=== PATIENT | female | born 1990 | race Caucasian/White ===

== ENCOUNTER 2018-05-29 12:15 | Inpatient (IN) | payer BC ==
[2018-05-29] MEDS: Lactated Ringers 1,000 ML ONE (12:50)
[2018-05-29] MEDS: Lactated Ringers 1,000 ML IV SCH ×2 (12:50→13:34)
[2018-05-29] MEDS ORDERED: Sodium Chloride 0.9% 10 ML Syringe FLUSH PRN (13:12)
[2018-05-29] MEDS ORDERED: Nalbuphine 20 MG/ML 1 ML Syringe IVPUSH PRN ×2 (13:12→15:48)
[2018-05-29] MEDS ORDERED: Oxytocin/Lactated Ringers 10 UNIT/1,000 ML BAG IV SCH (13:15)
--- NOTE | 2018-05-29 13:48 | PCM.PREANE ---
Preanesthetic Assessment - Anesthesia/Transfusion/Family Hx Anesthesia History: Prior Anesthesia Without Reaction Transfusion History: No Prior Transfusion(s) - Review of Systems General: No Symptoms Pulmonary: No Symptoms Cardiovascular: No Symptoms Gastrointestinal: No Symptoms Neurological: No Symptoms Other: Reports: None - Physical Assessment NPO Status Date: 05/29/18 NPO Status Time: 12:00 Pulse: 80 O2 Sat by Pulse Oximetry: 100 Respiratory Rate: 20 Blood Pressure: 119/81 Temperature: 96.9 F Height: 1.55 m Weight: 104.644 kg ASA Class: 2 Mental Status: Alert & Oriented x3 Airway Class: Mallampati = 3 Thyro-Mental Finger Breadths: 3 Mouth Opening Finger Breadths: 3 ROM/Head Extension: Full Lungs: Clear to Auscultation Cardiovascular: Regular Rate - Lab Values: Laboratory Last Values WBC 13.18 K/mm3 (3.98-10.04) H 05/29/18 12:50 RBC 4.32 M/mm3 (3.98-5.22) 05/29/18 12:50 Hgb 13.7 gm/L (11.2-15.7) 05/29/18 12:50 Hct 40.3 % (34.1-44.9) 05/29/18 12:50 MCV 93.3 fl (79.4-94.8) 05/29/18 12:50 MCH 31.7 pg (25.6-32.2) 05/29/18 12:50 MCHC 34.0 g/dl (32.2-35.5) 05/29/18 12:50 RDW Std Deviation 43.0 fL (36.4-46.3) 05/29/18 12:50 Plt Count 206 K/mm3 (182-369) 05/29/18 12:50 MPV 9.1 fl (9.4-12.3) L 05/29/18 12:50 - Allergies Allergies/Adverse Reactions: Allergies Allergy/AdvReac Type Severity Reaction Status Date / Time codeine Allergy Nausea Verified 05/29/18 13:10 - Acknowledgements Anesthesia Type Planned: Epidural Pt an Appropriate Candidate for the Planned Anesthesia: Yes Alternatives and Risks of Anesthesia Discussed w Pt/Guardian: Yes Pt/Guardian Understands and Agrees with Anesthesia Plan: Yes PreAnesthesia Questionnaire Psychiatric History: Reports: Anxiety - Past Surgical History HEENT Surgical History: Reports: Adenoidectomy, Tonsillectomy - CURRENT (IN HOUSE) MEDS Current Meds: Current Medications Lactated Ringer's (Ringers, Lactated) 1,000 mls @ 100 mls/hr IV ASDIRECTED MOISE Last Admin: 05/29/18 13:34 Dose: 999 mls/hr Oxytocin/Lactated Ringer's (Pitocin In Lr 10 Units/1,000 Ml) 10 unit in 1,000 mls @ 500 mls/hr IV .CONTINUOUS MOISE Nalbuphine HCl (Nubain) 10 mg IVPUSH Q2H PRN PRN Reason: pain Sodium Chloride (Saline Flush) 10 ml FLUSH ASDIRECTED PRN PRN Reason: Keep Vein Open Discontinued Medications Lactated Ringer's (Ringers, Lactated) Confirm Administered Dose 1,000 mls @ as directed .ROUTE .STK-MED ONE Stop: 05/29/18 13:21
[2018-05-29] MEDS ORDERED: fentaNYL 100 MCG/2 ML SDV EPIDUR PRN (13:53)
[2018-05-29] MEDS ORDERED: fentaNYL 100 MCG/2 ML SDV ONE (13:55)
[2018-05-29] MEDS ORDERED: Bupivacaine/fentaNYL/NS 100 ML Bag EPIDUR SCH (14:00)
--- NOTE | 2018-05-29 15:21 | PCM.LDHP ---
L&D History of Present Illness - General Date of Service: 05/29/18 Admit Problem/Dx: Patient Status Order with Admit Dx/Problem 05/29/18 12:27 Patient Status [ADT] Routine 05/29/18 13:10 Patient Status [ADT] Routine Admission Diagnosis/Problem Admission Diagnosis/Problem 05/29/18 15:15 27 yo at 39 weeks 4 days gestation presents to Labor and delivery with SROM at 1100 at home and pelvic/back pressure. Examined by nurse at admission adn found to be 3-4 cm dilated, 100%effaced. Admitted for labor. epidural placed. Pt states clear fluid at home. routine care ultrasound with dilated renal pelvis. GBS negative O positive STD negative. Source of Information: Patient History Limitations: Reports: No Limitations - History of Present Illness Location, : Reports: Abdomen, Lower back Quality: Reports: Ache, Pressure Severity: Moderate Pain Score: 9 Improves with: Reports: None Worsens with: Reports: None Associated Symptoms: Reports: vaginal fluid - Related Data Allergies/Adverse Reactions: Allergies Allergy/AdvReac Type Severity Reaction Status Date / Time codeine Allergy Nausea Verified 05/29/18 13:10 Past Medical History HEENT History: Reports: None Psychiatric History: Reports: Anxiety - Past Surgical History HEENT Surgical History: Reports: Adenoidectomy, Tonsillectomy Social & Family History - Family History Family Medical History: Noncontributory - Tobacco Use Smoking Status *Q: Never Smoker - Caffeine Use Caffeine Use: Reports: None - Recreational Drug Use Recreational Drug Use: No - Living Situation & Occupation Living situation: Reports: H&P Review of Systems - Review of Systems: Review Of Systems: See Below General: Reports: No Symptoms HEENT: Reports: No Symptoms Pulmonary: Reports: No Symptoms Cardiovascular: Reports: No Symptoms Gastrointestinal: Reports: No Symptoms Genitourinary: Reports: No Symptoms Musculoskeletal: Reports: No Symptoms Skin: Reports: No Symptoms Psychiatric: Reports: No Symptoms Neurological: Reports: No Symptoms Hematologic/Lymphatic: Reports: No Symptoms Immunologic: Reports: No Symptoms L&D Exam - Exam Exam: See Below - Vital Signs Vital Signs: Last Vital Signs Temp 36.1 C 05/29/18 13:47 Pulse 80 05/29/18 13:47 Resp 20 05/29/18 13:47 BP 119/81 05/29/18 13:47 Pulse Ox 100 05/29/18 13:47 Weight: 104.644 kg - OB Specific Contraction Intensity: Moderate Movement: Active Heart Tones: Present Heart Tones per Min: 115 Heart Rate (FHR) Variability: Moderate (6-25 bmp) Presentation: Vertex Estimated Weight: 3500 - Mosher Score Mosher Score Cervix Position: Anterior Mosher Score Consistency: Soft Mosher Score Effacement: >80% Mosher Score Dilation: > 5 cm Mosher Score Infant's Station: -2 Mosher Score Total: 11 - Exam General: Alert, Severe Distress HEENT: Conjunctiva Clear Neck: Supple Genitourinary: Normal external exam Extremities: No Pedal Edema Skin: Warm, Dry, Intact Psychiatric: Alert, Normal Affect, Normal Mood - Patient Data Lab Results Last 24 hrs: Laboratory Results - last 24 hr 05/29/18 Range/Units 12:50 WBC 13.18 H (3.98-10.04) K/mm3 RBC 4.32 (3.98-5.22) M/mm3 Hgb 13.7 (11.2-15.7) gm/L Hct 40.3 (34.1-44.9) % MCV 93.3 (79.4-94.8) fl MCH 31.7 (25.6-32.2) pg MCHC 34.0 (32.2-35.5) g/dl RDW Std Deviation 43.0 (36.4-46.3) fL Plt Count 206 (182-369) K/mm3 MPV 9.1 L (9.4-12.3) fl Result Diagrams: 05/29/18 12:50 - Problem List (1) Normal labor SNOMED Code(s): 40050945 ICD Code: O80 - ENCOUNTER FOR FULL-TERM UNCOMPLICATED DELIVERY; Z37.9 - OUTCOME OF DELIVERY, UNSPECIFIED Status: Acute Current Visit: Yes Problem List Initiated/Reviewed/Updated: Yes Orders Last 24hrs: Active Orders 24 hr Category Date Time Status Patient Status [ADT] Routine ADT 05/29/18 12:27 Active Patient Status [ADT] Routine ADT 05/29/18 13:10 Active Activity as Tolerated [RC] PFP Care 05/29/18 13:13 Active Communication Order [RC] ASDIRECTED Care 05/29/18 13:13 Active Heart Tones [RC] ASDIRECTED Care 05/29/18 13:13 Active Non Stress Test [RC] PER UNIT ROUTINE Care 05/29/18 12:27 Active Non Stress Test [RC] PER UNIT ROUTINE Care 05/29/18 13:13 Active Notify Provider [RC] PFP Care 05/29/18 13:13 Active Notify Provider [RC] PRN Care 05/29/18 13:13 Active Peripheral IV Care [RC] . DIRECTED Care 05/29/18 13:13 Active Vital Signs [RC] PER UNIT ROUTINE Care 05/29/18 12:27 Active Vital Signs [RC] PER UNIT ROUTINE Care 05/29/18 13:13 Active Regular Diet [DIET] Diet 05/29/18 Lunch Active AMNISURE RUPTURE MEMBRAN [BF] Stat Lab 05/29/18 12:27 Ordered CBC W/O DIFF,HEMOGRAM [HEME] Routine Lab 05/29/18 12:50 Ordered RAPID PLASMA REAGIN,RPR [CHEM] Routine Lab 05/29/18 13:13 Ordered UA W/MICROSCOPIC [URIN] Stat Lab 05/29/18 12:27 Ordered Bupivacaine/fentaNYL/NS [fentaNYL/Bupivacaine/NS 2 MCG- Med 05/29/18 14:00 Active 0.125% 100 ML] 100 ml EPIDUR ASDIRECTED Lactated Ringers [Ringers, Lactated] 1,000 ml Med 05/29/18 13:15 Active IV ASDIRECTED Nalbuphine [Nubain] Med 05/29/18 13:12 Active 10 mg IVPUSH Q2H PRN Oxytocin/Lactated Ringers [Pitocin in LR 10 Units/1,000 Med 05/29/18 13:15 Active ML] 10 unit in 1,000 ml IV .CONTINUOUS Sodium Chloride 0.9% [Saline Flush] Med 05/29/18 13:12 Active 10 ml FLUSH ASDIRECTED PRN fentaNYL [Sublimaze] Med 05/29/18 13:53 Active 100 mcg EPIDUR Q3H PRN Electronic Heart Tones Ext w TOCO [WOMSER] Oth 05/29/18 13:13 Ordered Routine Electronic Heart Tones Internal [WOMSER] Per Unit Oth 05/29/18 13:13 Ordered Routine Peripheral IV Insertion Adult [OM.PC] Routine Oth 05/29/18 13:13 Ordered Resuscitation Status Routine Resus Stat 05/29/18 12:27 Ordered Medication Orders Fentanyl (Sublimaze) 100 mcg EPIDUR Q3H PRN PRN Reason: Pain Last Admin: 05/29/18 14:40 Dose: 100 mcg Fentanyl/Bupivacaine HCl (Fentanyl/Bupivacaine/Ns 2 Mcg-0.125% 100 Ml) 100 ml EPIDUR ASDIRECTED [facility] Last Admin: 05/29/18 14:40 Dose: 100 ml Lactated Ringer's (Ringers, Lactated) 1,000 mls @ 100 mls/hr IV ASDIRECTED [facility] Last Admin: 05/29/18 13:34 Dose: 999 mls/hr Infusion: 05/29/18 13:34 Dose: 999 mls/hr Admin: 05/29/18 12:50 Dose: 999 mls/hr Oxytocin/Lactated Ringer's (Pitocin In Lr 10 Units/1,000 Ml) 10 unit in 1,000 mls @ 500 mls/hr IV .CONTINUOUS [facility] Nalbuphine HCl (Nubain) 10 mg IVPUSH Q2H PRN PRN Reason: pain Sodium Chloride (Saline Flush) 10 ml FLUSH ASDIRECTED PRN PRN Reason: Keep Vein Open Assessment/Plan Comment:: 27 yo G1 at 37 weeks 4 days gestation in active labor. She is GBS negative. Pt did have low heart tones and decelerations after epidural was placed. Pt was rolled to her left and then right side and scalp electrode was placed. heart tones improved to 115 with accelerations.
[2018-05-29] MEDS ORDERED: Sodium Chloride 0.9% 1,000 ML ONE (15:38)
[2018-05-29] MEDS ORDERED: Metoclopramide 10 MG/2 ML SDV IVPUSH ONE (15:48)
[2018-05-29] MEDS ORDERED: ceFAZolin 2 GM in Premix Bag 1 BAG IV ONE (15:48)
[2018-05-29] MEDS ORDERED: Citric Acid/Sodium Citrate Solution 30 ML Cup PO ONE (15:48)
[2018-05-29] MEDS ORDERED: Metoclopramide 10 MG/2 ML SDV ONE (15:49)
[2018-05-29] MEDS ORDERED: Citric Acid/Sodium Citrate Solution 30 ML Cup ONE (15:49)
[2018-05-29] MEDS ORDERED: Propofol 200 MG/20 ML SDV ONE (16:00)
[2018-05-29] MEDS ORDERED: fentaNYL 250 MCG/5 ML SDV ONE (16:01)
[2018-05-29] MEDS ORDERED: Midazolam 1 MG/ML 2 ML SDV ONE ×2 (16:01→16:23)
[2018-05-29] MEDS ORDERED: ceFAZolin 1 GM Vial ONE (16:18)
[2018-05-29] MEDS ORDERED: Oxytocin 10 Units/1 ML SDV ONE ×2 (16:18→16:28)
[2018-05-29] MEDS ORDERED: Lidocaine 1% 2 ML ONE (16:18)
[2018-05-29] MEDS ORDERED: Succinylcholine/Normal Saline 100 MG/5 ML Syringe ONE (16:18)
[2018-05-29] MEDS ORDERED: Ondansetron 4 MG/2 ML SDV ONE (16:27)
[2018-05-29] MEDS ORDERED: Lactated Ringers 1,000 ML ONE ×2 (16:32)
[2018-05-29] MEDS ORDERED: HYDROmorphone 0.5 MG/0.5 ML Syringe ONE (16:37)
[2018-05-29] MEDS ORDERED: Ketorolac 30 MG/ML SDV ONE (16:50)
[2018-05-29] MEDS ORDERED: Meperidine PF 50 MG/ML Syringe ONE (17:02)
--- NOTE | 2018-05-29 17:32 | PCM.OPNOTE ---
- General Post-Op/Procedure Note Date of Surgery/Procedure: 05/29/18 Operative Procedure(s): Primary low transverse Findings: Baby boy in a vertex presentation. APGARS of 8 & 9. Cord gas 7.27. Weight per pediatric team. Normal appearance of the uterus, fallopian tubes, and ovaries. Pre Op Diagnosis: 39 weeks gestation. Terminal bradycardia Post-Op Diagnosis: Same Anesthesia Technique: General ET Tube Primary Surgeon: Page Meyer Secondary Surgeon: Lucrecia Morrell Anesthesia Provider: Richar Weeks Reason [employer] Was Necessary: Emergent nature of case, BMI of 43 Pathology: Cord gas segment collected. Placenta discarded. Fluid Replacement, Intraop: 2,500 Output, Urine Amount: 150 EBL in mLs: 1,000 Complications: None Condition: Good Free Text/Narrative:: The risks, benefits, indications, potential complications, and alternatives were explained to the patient and informed consent obtained. After induction of anesthesia, the patient was placed in a supine position and then draped and prepped in the usual sterile manner. A Pfannenstiel incision was made and carried down through the subcutaneous tissue to the fascia. Fascial incision was made and extended transversely. The fascia was from the underlying rectus tissue superiorly and inferiorly. The peritoneum was identified and entered. Peritoneal incision was extended longitudinally. The utero-vesical peritoneal reflection was incised transversely and the bladder flap was bluntly freed from the lower uterine segment. A low transverse uterine incision was made sharply with a scalpel and extended bluntly in a cephalocaudad direction. A baby boy was delivered from a vertex presentation with APGARS as above. After the umbilical cord was clamped and cut a cord segment was obtained for cord gases. The placenta was removed intact and appeared normal. The uterus was exteriorized and cleared of clots. The uterine outline, tubes and ovaries appeared normal. The uterine incision was closed with running locked sutures of 0 Vicryl. Hemostasis was obtained with a second imbricating layer of 0 vicryl. The uterus was then placed back into the abdomen. The infracolic gutters were cleared of blood clots. The fascia was then reapproximated with running sutures of 0 Vicryl. The sucutaneous tissue was irrigated with sterile warm normal saline, hemostasis obtained with cautery. This layer was closed with two layers of running 0 vicryl suture. The skin was reapproximated with running Subcuticular 4-0 monocryl sutures. Instrument, sponge, and needle counts were correct prior the abdominal closure and at the conclusion of the case.
--- NOTE | 2018-05-29 17:32 | PCM.SN ---
- Free Text/Narrative Note: Called for Stat section due to distress. Patient brought to OR 1. Quick explanations about the necessity of General Anesthesia have been given. Patient verbalized understanding and has given her verbal consent witnessed by Kendell Aparicio Rn and Vee Anne RN.
--- NOTE | 2018-05-29 17:33 | PCM.POSTAN ---
POST ANESTHESIA ASSESSMENT - MENTAL STATUS Mental Status: Alert, Oriented - VITAL SIGNS Pulse Rate: 106 SaO2: 98 Resp Rate: 22 Blood Pressure: 121/64 Temperature: 97.5 F - RESPIRATORY Respiratory Status: Respiratory Rate WNL, Airway Patent, O2 Saturation Stable - CARDIOVASCULAR CV Status: Blood Pressure Stable, Elevated Pulse Rate - GASTROINTESTINAL GI Status: No Symptoms - PAIN Pain Score: 2 - POST OP HYDRATION Hydration Status: Adequate & Stable
[2018-05-29] MEDS ORDERED: ePHEDrine 50 MG/ML SDV IVPUSH PRN (17:39)
[2018-05-29] MEDS ORDERED: Docusate Sodium 100 MG Cap PO PRN (17:39)
[2018-05-29] MEDS ORDERED: Dextrose 5%-Lactated Ringers 1,000 ML IV SCH (17:39)
[2018-05-29] MEDS ORDERED: Naloxone 0.4 MG/ML SDV IVPUSH PRN (17:39)
[2018-05-29] MEDS ORDERED: Ondansetron 4 MG/2 ML SDV IV PRN (17:39)
[2018-05-29] MEDS ORDERED: Lanolin 100% Cream 7 GM Tube TOP PRN (17:39)
--- NOTE | 2018-05-29 18:48 | CR ---
Abdomen: Supine view of the abdomen was obtained. Comparison: No prior study. Linear radiopacity is seen within the abdomen starting off the superior edge of the film and extending into the upper abdomen. Please correlate as to etiology. No other foreign body is seen. Bowel gas pattern is normal. Bony structures are unremarkable. Impression: 1. Linear radiopacity as noted above. Please correlate as to etiology. Diagnostic code #3
[2018-05-29] MEDS ORDERED: Bupivacaine 0.25% 10 ML SDV ONE (22:00)
[2018-05-29] MEDS: Ketorolac 30 MG/ML SDV IVPUSH SCH (23:18)
[2018-05-30] MEDS: ceFAZolin 2 GM in Premix Bag 1 BAG IV SCH ×3 (00:17→16:02)
--- NOTE | 2018-05-30 05:03 | PCM.PNPP ---
- General Info Date of Service: 05/30/18 Functional Status: Reports: Pain Controlled, Tolerating Diet, Ambulating - Review of Systems General: Reports: No Symptoms HEENT: Reports: Sore Throat Pulmonary: Reports: No Symptoms Cardiovascular: Reports: No Symptoms Gastrointestinal: Reports: Abdominal Pain (managed with medications) Genitourinary: Reports: No Symptoms Musculoskeletal: Reports: No Symptoms Neurological: Reports: No Symptoms - Patient Data Vital Signs - Most Recent: Last Vital Signs Temp 36.6 C 05/30/18 04:20 Pulse 105 H 05/30/18 04:20 Resp 16 05/30/18 04:20 BP 96/45 L 05/30/18 04:20 Pulse Ox 97 05/30/18 04:20 Weight - Most Recent: 104.644 kg I&O - Last 24 Hours: Intake & Output 05/29/18 05/29/18 05/30/18 14:59 22:59 06:59 Intake Total 2750 Output Total 330 1600 Balance 2420 -1600 Lab Results - Last 24 Hours: Laboratory Results - last 24 hr 05/29/18 05/29/18 05/29/18 Range/Units 12:50 16:55 16:56 WBC 13.18 H (3.98-10.04) K/mm3 RBC 4.32 (3.98-5.22) M/mm3 Hgb 13.7 (11.2-15.7) gm/L Hct 40.3 (34.1-44.9) % MCV 93.3 (79.4-94.8) fl MCH 31.7 (25.6-32.2) pg MCHC 34.0 (32.2-35.5) g/dl RDW Std Deviation 43.0 (36.4-46.3) fL Plt Count 206 (182-369) K/mm3 MPV 9.1 L (9.4-12.3) fl Cord ABG pH 7.26 (7.22-7.32) Cord ABG pCO2 53.2 (42-58) Cord ABG pO2 24 (12-24) Cord ABG HCO3 23.1 L (24-26) Cord ABG Base Excess -4.5 (-5.5-0.1) Cord VBG pH 7.32 (7.28-7.40) Cord VBG pCO2 45.7 H (32.8-38.6) Cord VBG pO2 33 H (28-32) Cord VBG HCO3 22.7 (19-24) Cord VBG Base Excess -3.1 (-4.4-0.4) Med Orders - Current: Current Medications Docusate Sodium (Colace) 100 mg PO Q12H PRN PRN Reason: Constipation Emollient Ointment (Lansinoh Hpa) 0 gm TOP ASDIRECTED PRN PRN Reason: Sore Nipples Ephedrine Sulfate (Ephedrine Sulfate) 5 mg IVPUSH SEECOMMENT PRN PRN Reason: Other Cefazolin Sodium/Dextrose 2 gm (/ Premix) 50 mls @ 100 mls/hr IV Q8H MOISE Stop: 05/30/18 16:29 Last Admin: 05/30/18 00:17 Dose: 100 mls/hr Ibuprofen (Motrin) 600 mg PO Q6H PRN PRN Reason: mild pain or fever Ketorolac Tromethamine (Toradol) 30 mg IVPUSH Q6H MOISE Stop: 05/30/18 11:31 Last Admin: 05/29/18 23:18 Dose: 30 mg Naloxone HCl (Narcan) 0.1 mg IVPUSH SEECOMMENT PRN PRN Reason: Respiratory Depression Ondansetron HCl (Zofran) 4 mg IV Q8H PRN PRN Reason: Nausea/Vomiting Oxycodone/Acetaminophen (Percocet 325-5 Mg) 2 tab PO Q4H PRN PRN Reason: Pain (moderate 4-6) Discontinued Medications Cefazolin Sodium (Ancef) Confirm Administered Dose 2 gm .ROUTE .STK-MED ONE Stop: 05/29/18 16:19 Citric Acid/Sodium Citrate (Bicitra Solution) 30 ml PO ONETIME ONE Stop: 05/29/18 15:49 Last Admin: 05/29/18 15:48 Dose: 30 ml Citric Acid/Sodium Citrate (Bicitra Solution) Confirm Administered Dose 30 ml .ROUTE .STK-MED ONE Stop: 05/29/18 15:50 Fentanyl (Sublimaze) 100 mcg EPIDUR Q3H PRN PRN Reason: Pain Last Admin: 05/29/18 14:40 Dose: 100 mcg Fentanyl (Sublimaze) Confirm Administered Dose 100 mcg .ROUTE .STK-MED ONE Stop: 05/29/18 13:56 Fentanyl (Sublimaze) Confirm Administered Dose 250 mcg .ROUTE .STK-MED ONE Stop: 05/29/18 16:02 Fentanyl/Bupivacaine HCl (Fentanyl/Bupivacaine/Ns 2 Mcg-0.125% 100 Ml) 100 ml EPIDUR ASDIRECTED [facility] Last Admin: 05/29/18 14:40 Dose: 100 ml Hydromorphone HCl (Dilaudid) Confirm Administered Dose 0.5 mg .ROUTE .STK-MED ONE Stop: 05/29/18 16:38 Lactated Ringer's (Ringers, Lactated) 1,000 mls @ 100 mls/hr IV ASDIRECTED [facility] Last Admin: 05/29/18 13:34 Dose: 999 mls/hr Oxytocin/Lactated Ringer's (Pitocin In Lr 10 Units/1,000 Ml) 10 unit in 1,000 mls @ 500 mls/hr IV .CONTINUOUS [facility] Lactated Ringer's (Ringers, Lactated) Confirm Administered Dose 1,000 mls @ as directed .ROUTE .ST-MED ONE Stop: 05/29/18 13:21 Sodium Chloride (Normal Saline) Confirm Administered Dose 1,000 mls @ as directed .ROUTE .ST-MED ONE Stop: 05/29/18 15:39 Cefazolin Sodium/Dextrose 2 gm (/ Premix) 50 mls @ 100 mls/hr IV ONETIME ONE Stop: 05/29/18 16:17 Lidocaine HCl (Xylocaine-Mpf 1%) Confirm Administered Dose 2 mls @ as directed .ROUTE .STK-MED ONE Stop: 05/29/18 16:19 Lactated Ringer's (Ringers, Lactated) Confirm Administered Dose 1,000 mls @ as directed .ROUTE .STK-MED ONE Stop: 05/29/18 16:33 Lactated Ringer's (Ringers, Lactated) Confirm Administered Dose 1,000 mls @ as directed .ROUTE .STK-MED ONE Stop: 05/29/18 16:33 Dextrose/Lactated Ringer's (Dextrose 5%-Lactated Ringers) 1,000 mls @ 125 mls/ hr IV ASDIRECTED [facility] Stop: 05/30/18 01:38 Last Admin: 05/29/18 20:31 Dose: 125 mls/hr Lidocaine HCl (Xylocaine-Mpf 1%) Confirm Administered Dose 5 mls @ as directed .ROUTE .STK-MED ONE Stop: 05/29/18 17:45 Ketorolac Tromethamine (Toradol) Confirm Administered Dose 30 mg .ROUTE .STK- MED ONE Stop: 05/29/18 16:51 Meperidine HCl (Demerol) Confirm Administered Dose 50 mg .ROUTE .STK-MED ONE Stop: 05/29/18 17:03 Metoclopramide HCl (Reglan) 10 mg IVPUSH ONETIME ONE Stop: 05/29/18 15:49 Last Admin: 05/29/18 15:48 Dose: 10 mg Metoclopramide HCl (Reglan) Confirm Administered Dose 10 mg .ROUTE .STK-MED ONE Stop: 05/29/18 15:50 Midazolam HCl (Versed 1 Mg/Ml) Confirm Administered Dose 2 mg .ROUTE .STK-MED ONE Stop: 05/29/18 16:02 Midazolam HCl (Versed 1 Mg/Ml) Confirm Administered Dose 2 mg .ROUTE .STK-MED ONE Stop: 05/29/18 16:24 Nalbuphine HCl (Nubain) 10 mg IVPUSH Q2H PRN PRN Reason: pain Nalbuphine HCl (Nubain) 10 mg IVPUSH Q2H PRN PRN Reason: pain Ondansetron HCl (Zofran) Confirm Administered Dose 8 mg .ROUTE .STK-MED ONE Stop: 05/29/18 16:28 Oxytocin (Pitocin) Confirm Administered Dose 10 unit .ROUTE .STK-MED ONE Stop: 05/29/18 16:19 Oxytocin (Pitocin) Confirm Administered Dose 10 unit .ROUTE .STK-MED ONE Stop: 05/29/18 16:29 Propofol (Diprivan 20 Ml) Confirm Administered Dose 200 mg .ROUTE .STK-MED ONE Stop: 05/29/18 16:01 Sodium Chloride (Saline Flush) 10 ml FLUSH ASDIRECTED PRN PRN Reason: Keep Vein Open Succinylcholine Chloride (Succinylcholine In Ns Pf) Confirm Administered Dose 200 mg .ROUTE .STK-MED ONE Stop: 05/29/18 16:19 - Infant Interaction Disposition, : [place] in Room with Family Infant Interaction: Holding Feeding: Attempted ; Nursed Fair/Poor - Recovery Exam Fundal Tone: Firm Fundal Placement: Midline Lochia Amount: Small, Moderate Lochia Color: Rubra/Red Perineum Description: Intact, Minimal Bruising/Swelling Episiotomy/Laceration: None Bladder Status: Indwelling Catheter in Place Urinary Elimination: Indwelling Catheter - Exam General: Alert, Oriented, Cooperative Lungs: Clear to Auscultation, Normal Respiratory Effort Cardiovascular: Regular Rhythm, Tachycardia GI/Abdominal Exam: Soft, Tender (appropriate post op) Extremities: Normal Inspection Skin: Warm, Dry, Intact Wound/Incisions: Dressing Dry and Intact - Problem List & Annotations (1) 39 weeks gestation of SNOMED Code(s): 76696032 Code(s): Z3A.39 - 39 WEEKS GESTATION OF Status: Acute Current Visit: Yes (2) Non-reassuring status SNOMED Code(s): 202190794 Code(s): GZM0071 - Status: Acute Current Visit: Yes (3) S/P primary low transverse SNOMED Code(s): 087983615, 84048237, 194778635, 357144171, 288271671 Code(s): Z98.891 - HISTORY OF UTERINE SCAR FROM PREVIOUS SURGERY Status: Acute Current Visit: Yes - Problem List Review Problem List Initiated/Reviewed/Updated: Yes - My Orders Last 24 Hours: My Active Orders 05/29/18 15:48 Heart Tones [RC] PER UNIT ROUTINE Non Stress Test [RC] PER UNIT ROUTINE Procedure Site Prep Instruct [RC] ASDIRECTED Verify Patient Consent Obtain [RC] PER UNIT ROUTINE Vital Signs [RC] PFP 05/29/18 17:39 Activity as Tolerated [RC] .Routine Communication Order [RC] PER UNIT ROUTINE May Shower [RC] PER UNIT ROUTINE Notify Provider Intake and Out [RC] ASDIRECTED RT Incentive Spirometry [RC] Q2HWA Vital Signs [RC] Q4H Acetaminophen/oxyCODONE [Percocet 325-5 MG] 2 tab PO Q4H PRN Docusate Sodium [Colace] 100 mg PO Q12H PRN Lanolin [Lansinoh HPA] See Dose Instructions TOP ASDIRECTED PRN Naloxone [Narcan] 0.1 mg IVPUSH SEECOMMENT PRN Ondansetron [Zofran] 4 mg IV Q8H PRN ePHEDrine [ePHEDrine Sulfate] 5 mg IVPUSH SEECOMMENT PRN Assess Lochia [WOMSER] Per Unit Routine Assess Uterine Involution [WOMSER] Per Unit Routine Breast Pump [WOMSER] Per Unit Routine Heat Therapy [OM.PC] Per Unit Routine Peripheral IV Discontinue [OM.PC] Routine Sequential Compression Device [OM.PC] Per Unit Routine 05/29/18 23:30 Ketorolac [Toradol] 30 mg IVPUSH Q6H 05/29/18 Dinner Regular Diet [DIET] 05/30/18 00:00 ceFAZolin [Ancef] 2 gm Premix Bag 1 bag IV Q8H 05/30/18 05:11 CBC W/O DIFF,HEMOGRAM [HEME] AM 05/30/18 17:29 Urinary Catheter Removal [RC] Per Unit Routine 05/30/18 18:00 Ibuprofen [Motrin] 600 mg PO Q6H PRN - Assessment Assessment:: 27 y/o POD#1 from [facility] at 39 4/7 wks for bradycardia - Plan Plan:: * Routine cares * Encourage breast feeding * Discharge home in 1-2 days
[2018-05-30] MEDS: Ketorolac 30 MG/ML SDV IVPUSH SCH ×2 (05:26→11:36)
--- NOTE | 2018-05-30 09:00 | PCM.SN ---
- Free Text/Narrative Note: 05/29/18 - late entry Called by Dr. Ruiz at 1540 due to bradycardia. Presented immediately to L&D. heart rate baseline had been 110. At 1531 began having variables into the 70's. At 1534 had the start of a prolonged deceleration into the 80's. This lasted about 7-8 minutes. Patient consented for emergency . Into OR by 1554. Delivery at 1609. See operative note for full details Page Meyer
--- NOTE | 2018-05-30 09:28 | PCM48HPAN ---
Post Anesthesia Note - EVALUATION WITHIN 48HRS OF ANESTHETIC Vital Signs in Normal Range: Yes Patient Participated in Evaluation: Yes Respiratory Function Stable: Yes Airway Patent: Yes Cardiovascular Function Stable: Yes Hydration Status Stable: Yes Pain Control Satisfactory: Yes Nausea and Vomiting Control Satisfactory: Yes Mental Status Recovered: Yes Pulse Rate: 105 Resp Rate: 16 Temperature: 97.9 F Blood Pressure: 96/45 - COMMENTS/OBSERVATIONS Free Text/Narrative:: Patient is on postoperative day 1. Stated understanding about possible backaches following epidural anesthesia. Mentions having some back soreness at this time. Explanation given about importance of avoiding back straining. Denies any headache, nausea or lightheadedness at this time. Comfortable now, ambulating, no difficulty urinating.
[2018-05-30] MEDS: Acetaminophen/oxyCODONE 325-5 MG Tab PO PRN ×2 (12:31→19:58)
[2018-05-30] MEDS: Ibuprofen 600 MG Tab PO PRN ×2 (17:36→23:34)
[2018-05-31] MEDS: Acetaminophen/oxyCODONE 325-5 MG Tab PO PRN ×2 (02:32→11:02)
--- NOTE | 2018-05-31 06:47 | PCM.PNPP ---
- General Info Date of Service: 05/31/18 Functional Status: Reports: Pain Controlled, Tolerating Diet, Ambulating, Urinating - Review of Systems General: Reports: No Symptoms Pulmonary: Reports: No Symptoms Cardiovascular: Reports: No Symptoms Gastrointestinal: Reports: Abdominal Pain (managed with medications) Genitourinary: Reports: No Symptoms Musculoskeletal: Reports: No Symptoms Neurological: Reports: No Symptoms - Patient Data Vital Signs - Most Recent: Last Vital Signs Temp 36.6 C 05/31/18 02:59 Pulse 70 05/31/18 02:59 Resp 16 05/31/18 02:59 BP 92/60 05/31/18 02:59 Pulse Ox 98 05/31/18 02:59 Weight - Most Recent: 104.644 kg I&O - Last 24 Hours: Intake & Output 05/30/18 05/30/18 05/31/18 14:59 22:59 06:59 Intake Total 220 100 Output Total 2400 Balance -2180 100 Lab Results - Last 24 Hours: Laboratory Results - last 24 hr 05/30/18 Range/Units 07:05 WBC 8.94 (3.98-10.04) K/mm3 RBC 2.99 L (3.98-5.22) M/mm3 Hgb 9.3 L (11.2-15.7) gm/L Hct 28.6 L (34.1-44.9) % MCV 95.7 H (79.4-94.8) fl MCH 31.1 (25.6-32.2) pg MCHC 32.5 (32.2-35.5) g/dl RDW Std Deviation 43.9 (36.4-46.3) fL Plt Count 182 (182-369) K/mm3 MPV 8.7 L (9.4-12.3) fl Med Orders - Current: Current Medications Docusate Sodium (Colace) 100 mg PO Q12H PRN PRN Reason: Constipation Emollient Ointment (Lansinoh Hpa) 0 gm TOP ASDIRECTED PRN PRN Reason: Sore Nipples Ephedrine Sulfate (Ephedrine Sulfate) 5 mg IVPUSH SEECOMMENT PRN PRN Reason: Other Ibuprofen (Motrin) 600 mg PO Q6H PRN PRN Reason: mild pain or fever Last Admin: 05/30/18 23:34 Dose: 600 mg Naloxone HCl (Narcan) 0.1 mg IVPUSH SEECOMMENT PRN PRN Reason: Respiratory Depression Ondansetron HCl (Zofran) 4 mg IV Q8H PRN PRN Reason: Nausea/Vomiting Oxycodone/Acetaminophen (Percocet 325-5 Mg) 2 tab PO Q4H PRN PRN Reason: Pain (moderate 4-6) Last Admin: 05/31/18 02:32 Dose: 2 tab Discontinued Medications Bupivacaine HCl (Sensorcaine-Mpf 0.25%) 10 ml .ROUTE .STK-MED ONE Stop: 05/29/18 22:01 Cefazolin Sodium (Ancef) Confirm Administered Dose 2 gm .ROUTE .STK-MED ONE Stop: 05/29/18 16:19 Citric Acid/Sodium Citrate (Bicitra Solution) 30 ml PO ONETIME ONE Stop: 05/29/18 15:49 Last Admin: 05/29/18 15:48 Dose: 30 ml Citric Acid/Sodium Citrate (Bicitra Solution) Confirm Administered Dose 30 ml .ROUTE .STK-MED ONE Stop: 05/29/18 15:50 Fentanyl (Sublimaze) 100 mcg EPIDUR Q3H PRN PRN Reason: Pain Last Admin: 05/29/18 14:40 Dose: 100 mcg Fentanyl (Sublimaze) Confirm Administered Dose 100 mcg .ROUTE .STK-MED ONE Stop: 05/29/18 13:56 Fentanyl (Sublimaze) Confirm Administered Dose 250 mcg .ROUTE .STK-MED ONE Stop: 05/29/18 16:02 Fentanyl/Bupivacaine HCl (Fentanyl/Bupivacaine/Ns 2 Mcg-0.125% 100 Ml) 100 ml EPIDUR ASDIRECTED [facility] Last Admin: 05/29/18 14:40 Dose: 100 ml Hydromorphone HCl (Dilaudid) Confirm Administered Dose 0.5 mg .ROUTE .STK-MED ONE Stop: 05/29/18 16:38 Lactated Ringer's (Ringers, Lactated) 1,000 mls @ 100 mls/hr IV ASDIRECTED [facility] Last Admin: 05/29/18 13:34 Dose: 999 mls/hr Oxytocin/Lactated Ringer's (Pitocin In Lr 10 Units/1,000 Ml) 10 unit in 1,000 mls @ 500 mls/hr IV .CONTINUOUS [facility] Lactated Ringer's (Ringers, Lactated) Confirm Administered Dose 1,000 mls @ as directed .ROUTE .[facility] ONE Stop: 05/29/18 13:21 Sodium Chloride (Normal Saline) Confirm Administered Dose 1,000 mls @ as directed .ROUTE .[facility] ONE Stop: 05/29/18 15:39 Cefazolin Sodium/Dextrose 2 gm (/ Premix) 50 mls @ 100 mls/hr IV ONETIME ONE Stop: 05/29/18 16:17 Lidocaine HCl (Xylocaine-Mpf 1%) Confirm Administered Dose 2 mls @ as directed .ROUTE .[facility] ONE Stop: 05/29/18 16:19 Lactated Ringer's (Ringers, Lactated) Confirm Administered Dose 1,000 mls @ as directed .ROUTE .[facility] ONE Stop: 05/29/18 16:33 Lactated Ringer's (Ringers, Lactated) Confirm Administered Dose 1,000 mls @ as directed .ROUTE .[facility] ONE Stop: 05/29/18 16:33 Dextrose/Lactated Ringer's (Dextrose 5%-Lactated Ringers) 1,000 mls @ 125 mls/ hr IV ASDIRECTED [facility] Stop: 05/30/18 01:38 Last Admin: 05/29/18 20:31 Dose: 125 mls/hr Cefazolin Sodium/Dextrose 2 gm (/ Premix) 50 mls @ 100 mls/hr IV Q8H [facility] Stop: 05/30/18 16:29 Last Admin: 05/30/18 16:02 Dose: 100 mls/hr Lidocaine HCl (Xylocaine-Mpf 1%) Confirm Administered Dose 5 mls @ as directed .ROUTE .[facility] ONE Stop: 05/29/18 17:45 Ketorolac Tromethamine (Toradol) Confirm Administered Dose 30 mg .ROUTE .[facility] ONE Stop: 05/29/18 16:51 Ketorolac Tromethamine (Toradol) 30 mg IVPUSH Q6H [facility] Stop: 05/30/18 11:31 Last Admin: 05/30/18 11:36 Dose: 30 mg Lidocaine HCl (Xylocaine-Mpf 1%) 5 ml .ROUTE .[facility] ONE Stop: 05/29/18 22:01 Meperidine HCl (Demerol) Confirm Administered Dose 50 mg .ROUTE .STK-MED ONE Stop: 05/29/18 17:03 Metoclopramide HCl (Reglan) 10 mg IVPUSH ONETIME ONE Stop: 05/29/18 15:49 Last Admin: 05/29/18 15:48 Dose: 10 mg Metoclopramide HCl (Reglan) Confirm Administered Dose 10 mg .ROUTE .STK-MED ONE Stop: 05/29/18 15:50 Midazolam HCl (Versed 1 Mg/Ml) Confirm Administered Dose 2 mg .ROUTE .STK-MED ONE Stop: 05/29/18 16:02 Midazolam HCl (Versed 1 Mg/Ml) Confirm Administered Dose 2 mg .ROUTE .STK-MED ONE Stop: 05/29/18 16:24 Nalbuphine HCl (Nubain) 10 mg IVPUSH Q2H PRN PRN Reason: pain Nalbuphine HCl (Nubain) 10 mg IVPUSH Q2H PRN PRN Reason: pain Ondansetron HCl (Zofran) Confirm Administered Dose 8 mg .ROUTE .STK-MED ONE Stop: 05/29/18 16:28 Oxytocin (Pitocin) Confirm Administered Dose 10 unit .ROUTE .STK-MED ONE Stop: 05/29/18 16:19 Oxytocin (Pitocin) Confirm Administered Dose 10 unit .ROUTE .STK-MED ONE Stop: 05/29/18 16:29 Propofol (Diprivan 20 Ml) Confirm Administered Dose 200 mg .ROUTE .STK-MED ONE Stop: 05/29/18 16:01 Sodium Chloride (Saline Flush) 10 ml FLUSH ASDIRECTED PRN PRN Reason: Keep Vein Open Succinylcholine Chloride (Succinylcholine In Ns Pf) Confirm Administered Dose 200 mg .ROUTE .STK-MED ONE Stop: 05/29/18 16:19 - Interaction Disposition, : in Room with Family Infant Interaction: Holding Infant Feeding: Attempted ; Nursed Fair/Poor - Recovery Exam Fundal Tone: Firm Fundal Level: 1 Fingerbreadths Below Umbilicus Fundal Placement: Midline Lochia Amount: Small Lochia Color: Rubra/Red Perineum Description: Intact, Minimal Bruising/Swelling Episiotomy/Laceration: None Bladder Status: Voiding Urinary Elimination: Voided - Exam General: Alert, Oriented, Cooperative Lungs: Clear to Auscultation, Normal Respiratory Effort Cardiovascular: Regular Rate, Regular Rhythm GI/Abdominal Exam: Soft, Tender (appropriate) Extremities: Normal Inspection Wound/Incisions: Healing Well, No Drainage - Problem List & Annotations (1) 39 weeks gestation of SNOMED Code(s): 09432294 Code(s): Z3A.39 - 39 WEEKS GESTATION OF Status: Acute Current Visit: Yes (2) Non-reassuring status SNOMED Code(s): 968522403 Code(s): VYE7998 - Status: Acute Current Visit: Yes (3) S/P primary low transverse SNOMED Code(s): 366543155, 24836307, 600820604, 320299695, 660629808 Code(s): Z98.891 - HISTORY OF UTERINE SCAR FROM PREVIOUS SURGERY Status: Acute Current Visit: Yes - Problem List Review Problem List Initiated/Reviewed/Updated: Yes - My Orders Last 24 Hours: My Active Orders 05/30/18 18:00 Ibuprofen [Motrin] 600 mg PO Q6H PRN - Assessment Assessment:: 27 y/o POD#2 from [facility] at 39 4/7 wks for NRFS - Plan Plan:: * Routine cares * Encourage breast feeding * Discharge home today per patient preference
[2018-05-31] MEDS: Ibuprofen 600 MG Tab PO PRN ×2 (06:51→15:22)
--- NOTE | 2018-05-31 07:03 | PCM.DCSUM1 ---
Discharge Summary - Discharge Data Discharge Date: 05/31/18 Discharge Disposition: Home, Self-Care 01 Condition: Good - Discharge Diagnosis/Problem(s) (1) 39 weeks gestation of SNOMED Code(s): 69339310 ICD Code: Z3A.39 - 39 WEEKS GESTATION OF Status: Acute Current Visit: Yes (2) Non-reassuring status SNOMED Code(s): 611111383 ICD Code: API9220 - Status: Acute Current Visit: Yes (3) S/P primary low transverse SNOMED Code(s): 979101377, 69950985, 255919948, 177477411, 112788728 ICD Code: Z98.891 - HISTORY OF UTERINE SCAR FROM PREVIOUS SURGERY Status: Acute Current Visit: Yes - Patient Summary/Data Operative Procedure(s) Performed: Primary low transverse Complications: None Consults: None Recommended Follow-up Testing/Procedures: Follow up in 1-2 weeks for an incision check with Dr. Meyer and in 5-[address] Ruiz for check Hospital Course: 27 y/o at 39 4/7 wks who presented with SROM / labor. When patient was about 6 cm was found to have a terminal bradycardia down into the 80's lasting about 8 minutes and not resolving with interventions. Ob consulted and patient taken for emergent . See operative not for full details. she did well and was discharged home on POD#2 per her request - Patient Instructions Diet: Regular Diet as Tolerated Activity: No Lifting Over 10 Pounds Activity, Other: Pelvic Rest for 6 weeks Driving: Do Not Drive (While taking narcotics) Showering/Bathing: May Shower, No Tub Bathing/Swimming Wound/Incision Care: Keep Operative Site/Wound Site Clean and Dry Notify Provider of: Fever, Increased Pain, Swelling and Redness, Drainage, Nausea and/or Vomiting - Discharge Plan *PRESCRIPTION DRUG MONITORING PROGRAM REVIEWED*: Yes *COPY OF PRESCRIPTION DRUG MONITORING REPORT IN PATIENT HUBERT: No Prescriptions/Med Rec: Acetaminophen/oxyCODONE [Percocet 325-5 MG] 2 tab PO Q4H PRN #20 tablet PRN Reason: Pain (Moderate 4-6) Home Medications: Home Meds Acetaminophen/oxyCODONE [Percocet 325-5 MG] 2 tab PO Q4H PRN #20 tablet [Rx] Docusate Sodium [Colace] 100 mg PO Q12H PRN cap 05/30/18 [Rx] Ibuprofen [Motrin] 600 mg PO Q6H PRN tablet 05/30/18 [Rx] Patient Handouts: Home Care Instructions for Mom, Tips for a Good Latch Referrals: Page Meyer MD [Physician] - (2 weeks incision check) - Discharge Summary/Plan Comment DC Time >30 min.: No - Patient Data Vitals - Most Recent: Last Vital Signs Temp 36.6 C 05/31/18 02:59 Pulse 70 05/31/18 02:59 Resp 16 05/31/18 02:59 BP 92/60 05/31/18 02:59 Pulse Ox 98 05/31/18 02:59 Weight - Most Recent: 104.644 kg I&O - Last 24 hours: Intake & Output 05/30/18 05/31/18 05/31/18 22:59 06:59 14:59 Intake Total 100 Balance 100 Lab Results - Last 24 hrs: Laboratory Results - last 24 hr 05/30/18 Range/Units 07:05 WBC 8.94 (3.98-10.04) K/mm3 RBC 2.99 L (3.98-5.22) M/mm3 Hgb 9.3 L (11.2-15.7) gm/L Hct 28.6 L (34.1-44.9) % MCV 95.7 H (79.4-94.8) fl MCH 31.1 (25.6-32.2) pg MCHC 32.5 (32.2-35.5) g/dl RDW Std Deviation 43.9 (36.4-46.3) fL Plt Count 182 (182-369) K/mm3 MPV 8.7 L (9.4-12.3) fl Med Orders - Current: Current Medications Docusate Sodium (Colace) 100 mg PO Q12H PRN PRN Reason: Constipation Emollient Ointment (Lansinoh Hpa) 0 gm TOP ASDIRECTED PRN PRN Reason: Sore Nipples Ephedrine Sulfate (Ephedrine Sulfate) 5 mg IVPUSH SEECOMMENT PRN PRN Reason: Other Ibuprofen (Motrin) 600 mg PO Q6H PRN PRN Reason: mild pain or fever Last Admin: 05/31/18 06:51 Dose: 600 mg Naloxone HCl (Narcan) 0.1 mg IVPUSH SEECOMMENT PRN PRN Reason: Respiratory Depression Ondansetron HCl (Zofran) 4 mg IV Q8H PRN PRN Reason: Nausea/Vomiting Oxycodone/Acetaminophen (Percocet 325-5 Mg) 2 tab PO Q4H PRN PRN Reason: Pain (moderate 4-6) Last Admin: 05/31/18 02:32 Dose: 2 tab Discontinued Medications Bupivacaine HCl (Sensorcaine-Mpf 0.25%) 10 ml .ROUTE .STK-MED ONE Stop: 05/29/18 22:01 Cefazolin Sodium (Ancef) Confirm Administered Dose 2 gm .ROUTE .STK-MED ONE Stop: 05/29/18 16:19 Citric Acid/Sodium Citrate (Bicitra Solution) 30 ml PO ONETIME ONE Stop: 05/29/18 15:49 Last Admin: 05/29/18 15:48 Dose: 30 ml Citric Acid/Sodium Citrate (Bicitra Solution) Confirm Administered Dose 30 ml .ROUTE .STK-MED ONE Stop: 05/29/18 15:50 Fentanyl (Sublimaze) 100 mcg EPIDUR Q3H PRN PRN Reason: Pain Last Admin: 05/29/18 14:40 Dose: 100 mcg Fentanyl (Sublimaze) Confirm Administered Dose 100 mcg .ROUTE .STK-MED ONE Stop: 05/29/18 13:56 Fentanyl (Sublimaze) Confirm Administered Dose 250 mcg .ROUTE .STK-MED ONE Stop: 05/29/18 16:02 Fentanyl/Bupivacaine HCl (Fentanyl/Bupivacaine/Ns 2 Mcg-0.125% 100 Ml) 100 ml EPIDUR ASDIRECTED [facility] Last Admin: 05/29/18 14:40 Dose: 100 ml Hydromorphone HCl (Dilaudid) Confirm Administered Dose 0.5 mg .ROUTE .STK-MED ONE Stop: 05/29/18 16:38 Lactated Ringer's (Ringers, Lactated) 1,000 mls @ 100 mls/hr IV ASDIRECTED [facility] Last Admin: 05/29/18 13:34 Dose: 999 mls/hr Oxytocin/Lactated Ringer's (Pitocin In Lr 10 Units/1,000 Ml) 10 unit in 1,000 mls @ 500 mls/hr IV .CONTINUOUS [facility] Lactated Ringer's (Ringers, Lactated) Confirm Administered Dose 1,000 mls @ as directed .ROUTE .STK-MED ONE Stop: 05/29/18 13:21 Sodium Chloride (Normal Saline) Confirm Administered Dose 1,000 mls @ as directed .ROUTE .STK-MED ONE Stop: 05/29/18 15:39 Cefazolin Sodium/Dextrose 2 gm (/ Premix) 50 mls @ 100 mls/hr IV ONETIME ONE Stop: 05/29/18 16:17 Lidocaine HCl (Xylocaine-Mpf 1%) Confirm Administered Dose 2 mls @ as directed .ROUTE .STK-MED ONE Stop: 05/29/18 16:19 Lactated Ringer's (Ringers, Lactated) Confirm Administered Dose 1,000 mls @ as directed .ROUTE .STK-MED ONE Stop: 05/29/18 16:33 Lactated Ringer's (Ringers, Lactated) Confirm Administered Dose 1,000 mls @ as directed .ROUTE .STK-MED ONE Stop: 05/29/18 16:33 Dextrose/Lactated Ringer's (Dextrose 5%-Lactated Ringers) 1,000 mls @ 125 mls/ hr IV ASDIRECTED [facility] Stop: 05/30/18 01:38 Last Admin: 05/29/18 20:31 Dose: 125 mls/hr Cefazolin Sodium/Dextrose 2 gm (/ Premix) 50 mls @ 100 mls/hr IV Q8H [facility] Stop: 05/30/18 16:29 Last Admin: 05/30/18 16:02 Dose: 100 mls/hr Lidocaine HCl (Xylocaine-Mpf 1%) Confirm Administered Dose 5 mls @ as directed .ROUTE .STK-MED ONE Stop: 05/29/18 17:45 Ketorolac Tromethamine (Toradol) Confirm Administered Dose 30 mg .ROUTE .STK- MED ONE Stop: 05/29/18 16:51 Ketorolac Tromethamine (Toradol) 30 mg IVPUSH Q6H [facility] Stop: 05/30/18 11:31 Last Admin: 05/30/18 11:36 Dose: 30 mg Lidocaine HCl (Xylocaine-Mpf 1%) 5 ml .ROUTE .STK-MED ONE Stop: 05/29/18 22:01 Meperidine HCl (Demerol) Confirm Administered Dose 50 mg .ROUTE .STK-MED ONE Stop: 05/29/18 17:03 Metoclopramide HCl (Reglan) 10 mg IVPUSH ONETIME ONE Stop: 05/29/18 15:49 Last Admin: 05/29/18 15:48 Dose: 10 mg Metoclopramide HCl (Reglan) Confirm Administered Dose 10 mg .ROUTE .STK-MED ONE Stop: 05/29/18 15:50 Midazolam HCl (Versed 1 Mg/Ml) Confirm Administered Dose 2 mg .ROUTE .STK-MED ONE Stop: 05/29/18 16:02 Midazolam HCl (Versed 1 Mg/Ml) Confirm Administered Dose 2 mg .ROUTE .STK-MED ONE Stop: 05/29/18 16:24 Nalbuphine HCl (Nubain) 10 mg IVPUSH Q2H PRN PRN Reason: pain Nalbuphine HCl (Nubain) 10 mg IVPUSH Q2H PRN PRN Reason: pain Ondansetron HCl (Zofran) Confirm Administered Dose 8 mg .ROUTE .STK-MED ONE Stop: 05/29/18 16:28 Oxytocin (Pitocin) Confirm Administered Dose 10 unit .ROUTE .STK-MED ONE Stop: 05/29/18 16:19 Oxytocin (Pitocin) Confirm Administered Dose 10 unit .ROUTE .STK-MED ONE Stop: 05/29/18 16:29 Propofol (Diprivan 20 Ml) Confirm Administered Dose 200 mg .ROUTE .STK-MED ONE Stop: 05/29/18 16:01 Sodium Chloride (Saline Flush) 10 ml FLUSH ASDIRECTED PRN PRN Reason: Keep Vein Open Succinylcholine Chloride (Succinylcholine In Ns Pf) Confirm Administered Dose 200 mg .ROUTE .STK-MED ONE Stop: 05/29/18 16:19
== END 2018-05-31 15:20 | disposition home or self-care (01) | DRG 540 ==
LOC: JD.OBCHECK 12:15 → JD.OB 13:10 → OBSVTOIN 16:09 → JD.OB 16:09
PROVIDERS: ADMIT Family Medicine; ATTEND Family Medicine
PROC: 6A550ZT Pheresis of Cord Blood Stem Cells, Single (ICD-10-PCS; principal; 2018-05-29)
PROC: 10D00Z1 Extraction of Products of Conception, Low, Open Approach (ICD-10-PCS; principal; 2018-05-29)
PROC: 10H073Z Insertion of Monitoring Electrode into Products of Conception, Via Natural or Artificial Opening (ICD-10-PCS; 2018-05-29)
PROC: 3E0R3BZ Introduction of Anesthetic Agent into Spinal Canal, Percutaneous Approach (ICD-10-PCS; 2018-05-29)
PROC: 00HU33Z Insertion of Infusion Device into Spinal Canal, Percutaneous Approach (ICD-10-PCS; 2018-05-29)
DX: O99.344 Other mental disorders complicating childbirth (principal); F41.9 Anxiety disorder, unspecified; O76 Abnormality in fetal heart rate and rhythm complicating labor and delivery; Z3A.39 39 weeks gestation of pregnancy; Z37.0 Single live birth; Z88.6 Allergy status to analgesic agent; Z79.899 Other long term (current) drug therapy; O99.214 Obesity complicating childbirth; E66.01 Morbid (severe) obesity due to excess calories; Z68.41 Body mass index [BMI] 40.0-44.9, adult
CPT/HCPCS: 01961; 36415; 36600; 51702; 59025; 74018; 74018-26; 82803; 85027; A9270-GY; J0330; J0690; J1170; J1885; J2001; J2175; J2250; J2405; J2590; J2704; J2765; J3010; J3490; J7042; J7120